=== PATIENT | male | born 1945 | race Two or more races ===

== ENCOUNTER 2020-01-24 17:54 | Emergency (ER) | payer BC ==
--- NOTE | 2020-01-24 18:54 | TELE ---
HPI Do you have fever,cough or shortness of breath?: No - General Reason For Visit: VIRTUAL VISIT History Source: Patient Exam Limitations: No Limitations - History of Present Illness 01/24/20 18:51 HPI: Patient with telehealth visit for concern of potential COVID infection. Patient was around a visitor who was from [facility] who was in his house without a mask on. Visit was asymptomatic and currently the patient denies any symptoms. His last contact with this person was approximately 5 days ago. CONSTITUTIONAL: Absent: fever, chills, diaphoresis, generalized weakness, malaise, loss of appetite HEENT: Absent: rhinorrhea, nasal congestion, throat pain, throat swelling, difficulty swallowing, mouth swelling, ear pain, eye pain, visual changes CARDIOVASCULAR: Absent: chest pain, loss of consciousness, palpitations, irregular heart rate, peripheral edema RESPIRATORY: Absent: cough, shortness of breath, dyspnea with exertion, orthopnea, wheezing, stridor, hemoptysis GASTROINTESTINAL: Absent: abdominal pain, abdominal distension, nausea, vomiting, diarrhea SKIN: Absent: rash, itching, pallor NEUROLOGIC: Absent: headache, focal weakness or paresthesias, dizziness, unsteady gait, seizure, mental status changes, bladder or bowel incontinence PSYCHIATRIC: Absent: anxiety, depression, suicidal or homicidal ideation, hallucinations. GENERAL: Well developed, well nourished. Awake and alert. No acute distress. HEENT: Normocephalic, atraumatic. PERRLA, EOMI. NECK: Supple. Full ROM. PULMONARY: No evidence of respiratory distress. EXTREMITIES: No cyanosis. SKIN: Warm and dry. Normal capillary refill. No rashes. No jaundice. NEUROLOGICAL: Alert, awake, appropriate. PSYCHIATRIC: Cooperative. Good eye contact. Appropriate mood and affect. - Medical Decision Making 01/24/20 18:52 A/P: 74-year-old male with telehealth visit requesting COVID testing following questionable exposure to infection. Patient is asymptomatic at this time COVID test ordered Patient has been instructed to perform social distancing until results have returned. Discharge Discharge Diagnosis at time of Disposition: Counseled about COVID-19 virus infection - Referrals - Patient Instructions Additional Discharge Instructions: You were tested for COVID today. Please isolate yourself until your test results come back. Guidance has been provided in your discharge papers You should receive a call within 24 to 48 hours from our department with your results. Thank you for using our telehealth service today! - Discharge Disposition: HOME Condition at time of Disposition: Stable
== END 2020-01-24 18:54 | disposition home or self-care (01) ==
LOC: JVIRT 17:54
DX: Z03.818 Encounter for observation for suspected exposure to other biological agents ruled out (principal)
CPT/HCPCS: C9803; Q3014-GT; U0003

== ENCOUNTER 2020-03-03 13:35 | Emergency (ER) | payer BC | END 2020-03-03 14:06 | disposition home or self-care (01) | LOC: JVIRT 13:35 | DX: Z03.818 Encounter for observation for suspected exposure to other biological agents ruled out (principal) | CPT/HCPCS: C9803; Q3014-GT; U0003 ==

== ENCOUNTER 2020-03-19 13:25 | Emergency (ER) | payer BC | END 2020-03-19 13:52 | disposition home or self-care (01) | LOC: JVIRT 13:25 | DX: Z11.59 Encounter for screening for other viral diseases (principal) | CPT/HCPCS: Q3014-GT ==

== ENCOUNTER 2020-03-19 18:30 | Emergency (ER) | payer BC | END 2020-03-19 18:56 | disposition home or self-care (01) | LOC: JVIRT 18:30 | DX: Z11.59 Encounter for screening for other viral diseases (principal) | CPT/HCPCS: Q3014-GT ==